=== PATIENT | male | born 1970 | race African-American/Black ===

== ENCOUNTER 2025-03-17 11:38 | Emergency (ER) | payer OTHER ==
[2025-03-17] MEDS: Orphenadrine 60 MG/2 ML Inj IM ONE (12:57)
[2025-03-17] MEDS: Ketorolac 60 MG/2 ML SDV IM ONE (12:57)
== END 2025-03-17 13:39 | disposition home or self-care (01) ==
LOC: MW.ED 11:38
DX: S70.01XA Contusion of right hip, initial encounter (principal); S16.1XXA Strain of muscle, fascia and tendon at neck level, initial encounter; S39.012A Strain of muscle, fascia and tendon of lower back, initial encounter; V87.7XXA Person injured in collision between other specified motor vehicles (traffic), initial encounter
CPT/HCPCS: 72070; 72100; 72125; 73502; 96372; 99284; J1885; J2360; 99283